=== PATIENT | male | born 1970 | race African-American/Black ===

== ENCOUNTER → 2019-04-03 13:11 | Outpatient (CLI) | payer OTHER, SELFPAY ==
--- NOTE | 2019-04-03 13:22 | STE_ITS ---
Reason For Study: CHEST PAIN Stress Results Protocol: [facility] Protocol Maximum Predicted HR: 172 bpm Target HR: 146 bpm % Maximum Predicted HR: 101 % DurationHeart Rate Stage (mm:ss) (bpm) BP Comment BASELINE 65 140/78 STAGE 1 3:00 116 148/84 STAGE 2 3:00 126 140/80 STAGE 3 3:00 146 150/84 STAGE 4 3:00 173 172/82SOB/NO CHEST PAIN RECOVERY 99 112/74 Stress Duration: 12:00 mm:ss Maximum Stress HR: 173 bpm Baseline Echocardiogram Findings Stress Echo Wall motion Data Resting WM Intermediate WM Stress WM Interpretation Summary Exercise stress echo Stress protocol: Resting EKG demonstrates normal sinus rhythm with a rate of 71 bpm normal intervals are noted resting blood pressures 140/78 mmHg. The patient exercised according to regular [facility] protocol for a total duration of 12 minutes the maximum heart rate attained was 176 bpm which was 102% of maximum predicted heart rate the maximum workload was 13.4 metabolic equivalents. At rest there were no ST or T wave changes noted suggest ischemia peak exercise upsloping ST changes were noted with no meet the criteria for ischemia. No clinical angina was noted. The resting blood pressure was 140/78 with a peak blood pressure 172/82 mmHg with a rate pressure product of 30,200. The test was terminated due to target heart rate being achieved. Stress echocardiogram. Resting echocardiographic images demonstrated preserved ejection fraction of 60% with no wall motion abnormalities and no valvular abnormalities. A false mid cavitary tendon is noted. During stress there was thickening of all alvares reduction of the ventricular cavity size and peaking of ejection fraction at 75%. No wall motion abnormalities were noted. Conclusion: Normal exercise stress echocardiogram with no evidence of ischemia at a high workload. Excellent functional capacity. Low risk test. No arrhythmias noted Ordering Physician: Low Randle MD Referring Physician: Low Randle Performed By: Madalyn Campbell RDCS
== END ==
PROVIDERS: Referring Provider Internal Medicine Cardiovascular Disease; Visit Provider Internal Medicine Cardiovascular Disease
DX: R07.9 Chest pain, unspecified (principal)
CPT/HCPCS: 93017; 93350

== ENCOUNTER → 2019-04-04 07:46 | Outpatient (CLI) | payer OTHER, SELFPAY ==
[2019-04-03 13:58] VITALS: BMI 27.4
[2019-04-04 08:37] LABS: Absolute Lymphocyte Count 2.28 X10^3/uL (0.83-4.51); Absolute Neutrophil Count 2.1 X10^3/uL (2.0-7.7); Basophil# 0.04 X10^3/uL; Basophil% 0.8 % (0-1); Eosinophil# 0.08 X10^3/uL; Eosinophils% 1.6 % (0-5); Hematocrit 48.2 % (40-54); Hemoglobin 15.9 g/dL (13.0-16.5); Lymphocyte # 2.28 X10^3/ul (4.0); Lymphocyte % 46.1 % (19-41); Mean Corpuscular Hgb 27.4 pg (27.0-32.0); Mean Platelet Vol. 8.8 fl (6.2-12.0); Monocyte# 0.44 X10^3/uL; Monocyte% 8.9 % (0-10); NRBC Flagged by Analyzer 0 % (0-5); Neutrophil % 42.4 % (47-70); Platelet Count 225 K/mm3 (150-450); RBC Distribution Width CV 15.7 % (11.6-14.6); RBC Distribution Width SD 46.7 fl (35.1-43.9); Red Blood Count 5.81 M/mm3 (4.6-6.2)
[2019-04-04 09:12] LABS: AST(SGOT) 20 U/L (15-37); Alanine Aminotransfer ALT/SGPT 36 U/L (16-61); Albumin, Serum 4.1 g/dL (3.2-5.0); Alkaline Phosphatase 70 U/L (45-117); Anion Gap 4 (5-15); BUN 14 mg/dL (7-18); BUN/Creat Ratio 13.6 RATIO (10-20); Calcium,Total 8.5 mg/dL (8.5-10.1); Chloride 106 mmol/L (98-107); Creatinine, Serum 1.03 mg/dL (0.70-1.30); EST Glomerular Filtration Rate 82 mL/min (>60); Est Glom Filt Rate - Afr Amer 99 mL/min (>60); Globulin 4.1 g/dL (2.2-4.2); Glucose 90 mg/dL (74-106); Potassium 3.8 mmol/L (3.5-5.1); Protein, Total 8.2 g/dL (6.4-8.2); Sodium Level 139 mmol/L (136-145)
[2019-04-05 11:08] LABS: PSA, Free 0.18 ng/mL; PSA, Total Ultrasensitive 0.6 ng/mL (0.0-4.0)
== END ==
DX: I10 Essential (primary) hypertension (principal); E78.2 Mixed hyperlipidemia; R53.83 Other fatigue; Z12.5 Encounter for screening for malignant neoplasm of prostate; Z83.2 Family history of diseases of the blood and blood-forming organs and certain disorders involving the immune mechanism
CPT/HCPCS: 36415; 80053; 84153; 84154; 85025

== ENCOUNTER → 2022-10-10 | Outpatient (CLI) | payer SELFPAY ==
[2022-10-12 13:08] LABS: QNTFERON TB Mitogen Value > 10.00 IU/mL (.); QNTFERON TB Nil Value 0.14 IU/mL (.); QNTFERON TB1+ Ag Value 0.29 IU/mL (.); QNTFERON TB2+ Ag Value 0.12 IU/mL (.); QNTIFERON TB Positive Criteria Negative (Negative)
== END | disposition home or self-care (01) ==
PROVIDERS: Referring Provider Internal Medicine; Visit Provider Internal Medicine
DX: Z11.1 Encounter for screening for respiratory tuberculosis (principal)
CPT/HCPCS: 36415; 86480